=== PATIENT | female | born 1955 | race Caucasian/White ===

== ENCOUNTER 2017-09-22 10:45 | Emergency (ER) | payer SELFPAY ==
--- NOTE | 2017-09-22 11:40 | EDM.PDOC ---
ED HPI GENERAL MEDICAL PROBLEM - General Chief Complaint: Neuro Symptoms/Deficits Stated Complaint: DIZZY SPELLS Time Seen by Provider: 09/22/17 11:10 Source of Information: Reports: Patient, Family History Limitations: Reports: No Limitations - History of Present Illness INITIAL COMMENTS - FREE TEXT/NARRATIVE: 62-year-old female who has intermittent sudden onset lightheadedness which brings on anxiety. This is been going on for months. Today she had a spell where she sat down but it wasn't resolving so she thought she come in to be seen. She has no other symptoms such as headache, vertigo, visual disturbance, shortness of breath, palpitations, nausea or vomiting. She is hypertensive, is on HCTZ/triamterene. Occasionally when she gets lightheaded she then becomes anxious and gets some numbness in her hands and feet. The episode she had this morning is mostly resolved but she still feels "off". Onset: Unknown/Unsure Severity: Moderate Worsens with: Reports: Other (Anxiety, usually occurs with activity) Associated Symptoms: Denies: Confusion, Chest Pain, Cough, Diaphoresis, Fever/ Chills, Headaches, Nausea/Vomiting, Shortness of Breath - Related Data Allergies Allergy/AdvReac Type Severity Reaction Status Date / Time No Known Allergies Allergy Verified 12/29/13 11:02 Home Meds: Home Meds HCTZ/Triamterene [Dyazide 25-37.5 MG] 25 - 37.5 DAILY 09/22/17 [History] Past Medical History HEENT History: Reports: Impaired Vision Cardiovascular History: Reports: Hypertension Neurological History: Reports: Other (See Below) Other Neuro History: light headed at times Social & Family History - Tobacco Use Smoking Status *Q: Never Smoker Second Hand Smoke Exposure: No - Caffeine Use Caffeine Use: Reports: Coffee - Recreational Drug Use Recreational Drug Use: No ED ROS GENERAL - Review of Systems Review Of Systems: See Below Constitutional: Denies: Fever, Chills, Malaise, Weakness HEENT: Reports: No Symptoms Respiratory: Denies: Shortness of Breath, Cough Cardiovascular: Denies: Chest Pain, Palpitations GI/Abdominal: Reports: Abdominal Pain (Some vague abdominal pain which has been fairly persistent, across the upper abdomen) Skin: Reports: No Symptoms Neurological: Reports: Dizziness. Denies: Headache, Trouble Speaking, Difficulty Walking, Weakness Psychiatric: Reports: Anxiety ED EXAM, GENERAL - Physical Exam Exam: See Below Exam Limited By: No Limitations General Appearance: Alert, No Apparent Distress Eye Exam: Bilateral Eye: Normal Inspection Respiratory/Chest: No Respiratory Distress, Lungs Clear Cardiovascular: Regular Rate, Rhythm, Systolic Murmur (Faint systolic murmur is present) GI/Abdominal: Soft, Tender (Some discomfort across the upper abdomen but no focal guarding or rebound) Extremities: Normal Inspection. No: Pedal Edema Neurological: Alert, Oriented, No Motor/Sensory Deficits Psychiatric: Anxious Skin Exam: Warm, Dry Course - Vital Signs Last Recorded V/S: Last Vital Signs Temp 97.7 F 09/22/17 10:56 Pulse 83 09/22/17 12:20 Resp 16 09/22/17 12:20 BP 190/90 H 09/22/17 12:20 Pulse Ox 98 09/22/17 12:20 - Orders/Labs/Meds Labs: Laboratory Tests 09/22/17 09/22/17 09/22/17 Range/Units 11:40 11:40 11:40 WBC 7.7 (4.5-11.0) K/uL RBC 5.01 (3.30-5.50) M/uL Hgb 14.4 (12.0-15.0) g/dL Hct 43.2 (36.0-48.0) % MCV 86 (80-98) fL MCH 29 (27-31) pg MCHC 33 (32-36) % Plt Count 293 (150-400) K/uL Neut % (Auto) 69 H (36-66) % Lymph % (Auto) 20 L (24-44) % [place] % (Auto) 8 H (2-6) % Eos % (Auto) 3 (2-4) % Baso % (Auto) 1 (0-1) % Sodium 137 L (140-148) mmol/L Potassium 3.1 L (3.6-5.2) mmol/L Chloride 100 (100-108) mmol/L Carbon Dioxide 28 (21-32) mmol/L Anion Gap 12.1 (5.0-14.0) mmol/L BUN 9 (7-18) mg/dL Creatinine 0.8 (0.6-1.0) mg/dL Est Cr Clr Drug Dosing 51.03 mL/min Estimated GFR (MDRD) > 60 (>60) Glucose 147 H (74-106) mg/dL Calcium 8.9 (8.5-10.1) mg/dL Total Bilirubin 0.7 (0.2-1.0) mg/dL AST 18 (15-37) U/L ALT 24 (12-78) U/L Alkaline Phosphatase 92 (46-116) U/L Total Protein 7.2 (6.4-8.2) g/dL Albumin 3.2 L (3.4-5.0) g/dL Globulin 4.0 H (2.3-3.5) g/dL Albumin/Globulin Ratio 0.8 L (1.2-2.2) TSH, Ultra Sensitive 1.476 (0.358-3.740) uIU/mL Urine Color Urine Appearance Urine pH (4.5-8.0) Ur Specific [place] (1.008-1.030) Urine Protein (NEGATIVE) mg/dL Urine Glucose (UA) (NEGATIVE) mg/dL Urine Ketones (NEGATIVE) mg/dL Urine Occult Blood (NEGATIVE) Urine Nitrite (NEGATIVE) Urine Bilirubin (NEGATIVE) Urine Urobilinogen (NORMAL) mg/dL Ur Leukocyte Esterase (NEGATIVE) Urine RBC (0-5) Urine WBC (0-5) Ur Epithelial Cells Amorphous Sediment Urine Bacteria Urine Mucus 09/22/17 Range/Units 11:55 WBC (4.5-11.0) K/uL RBC (3.30-5.50) M/uL Hgb (12.0-15.0) g/dL Hct (36.0-48.0) % MCV (80-98) fL MCH (27-31) pg MCHC (32-36) % Plt Count (150-400) K/uL Neut % (Auto) (36-66) % Lymph % (Auto) (24-44) % [place] % (Auto) (2-6) % Eos % (Auto) (2-4) % Baso % (Auto) (0-1) % Sodium (140-148) mmol/L Potassium (3.6-5.2) mmol/L Chloride (100-108) mmol/L Carbon Dioxide (21-32) mmol/L Anion Gap (5.0-14.0) mmol/L BUN (7-18) mg/dL Creatinine (0.6-1.0) mg/dL Est Cr Clr Drug Dosing mL/min Estimated GFR (MDRD) (>60) Glucose (74-106) mg/dL Calcium (8.5-10.1) mg/dL Total Bilirubin (0.2-1.0) mg/dL AST (15-37) U/L ALT (12-78) U/L Alkaline Phosphatase (46-116) U/L Total Protein (6.4-8.2) g/dL Albumin (3.4-5.0) g/dL Globulin (2.3-3.5) g/dL Albumin/Globulin Ratio (1.2-2.2) TSH, Ultra Sensitive (0.358-3.740) uIU/mL Urine Color Yellow Urine Appearance Clear Urine pH 9.0 H (4.5-8.0) Ur Specific [place] 1.015 (1.008-1.030) Urine Protein Negative (NEGATIVE) mg/dL Urine Glucose (UA) Normal (NEGATIVE) mg/dL Urine Ketones Negative (NEGATIVE) mg/dL Urine Occult Blood Negative (NEGATIVE) Urine Nitrite Negative (NEGATIVE) Urine Bilirubin Negative (NEGATIVE) Urine Urobilinogen Normal (NORMAL) mg/dL Ur Leukocyte Esterase Negative (NEGATIVE) Urine RBC 0-5 (0-5) Urine WBC 0-5 (0-5) Ur Epithelial Cells Few Amorphous Sediment Not seen Urine Bacteria Few Urine Mucus Not seen - Re-Assessments/Exams Free Text/Narrative Re-Assessment/Exam: 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 She is hypertensive but O2 saturations are normal and she is afebrile. CBC, CMP and TSH were obtained. 09/22/17 12:30 CBC and TSH were normal. CMP revealed a potassium of 3.1, otherwise normal. She continued to be in sinus rhythm her entire ER stay. She was started on potassium chloride 20 mEq daily, and repeat blood pressure check still had a systolic of 190. She claims her blood pressure is usually normal. We also set her up for a 48 hour Holter monitor, and I would like her to recheck with her primary provider next week to recheck her blood pressure, her potassium, and consider additional blood pressure medication if necessary. Departure - Departure Time of Disposition: 13:00 Disposition: Home, Self-Care 01 Condition: Good Clinical Impression: Dizziness, Hypokalemia - Discharge Information Instructions: Hypokalemia Referrals: Susan Yañez PA [Primary Care Provider] - Forms: ED Department Discharge Care Plan Goals: Replace potassium with one oral dose daily for the next 30 days as prescribed. Continue on your other medication, and recheck next week to discuss Holter monitor results, get blood pressure and potassium recheck and discuss any further evaluation.
== END 2017-09-22 13:15 | disposition home or self-care (01) ==
LOC: JP.ED 10:45
DX: E87.6 Hypokalemia (principal); R42 Dizziness and giddiness; I10 Essential (primary) hypertension; Z79.899 Other long term (current) drug therapy
CPT/HCPCS: 36415; 80053; 81001; 84443; 85025; 99284

== ENCOUNTER 2021-05-13 19:40 | Emergency (ER) | payer MEDICARE ==
--- NOTE | 2021-05-13 21:12 | EDM.PDOC ---
ED HPI GENERAL MEDICAL PROBLEM - General Chief Complaint: Fever Stated Complaint: FEVER, COUGH, ABDOMINAL PAIN Time Seen by Provider: 05/13/21 20:20 Source of Information: Reports: Patient History Limitations: Reports: No Limitations - History of Present Illness INITIAL COMMENTS - FREE TEXT/NARRATIVE: 66-year-old female, usually healthy, was exposed to Covid 2 weeks ago and for the last week to week and a half has had a cough, intermittent fevers, intermittent lower abdominal pain and mild loose stools. Generalized body aches. She is unvaccinated and came in mainly to find out if she has Covid. She is very stable, no respiratory difficulties. Onset: Gradual Duration: Day(s): (7 to 10 days of symptoms) Associated Symptoms: Reports: Cough. 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: , Spontaneous Musculoskeletal History: Reports: Arthritis Neurological History: Reports: Other (See Below) Other Neuro History: light headed at times - Infectious Disease History Infectious Disease History: Reports: Chicken Pox Social & Family History - Tobacco Use Tobacco Use Status *Q: Never Tobacco User - Caffeine Use Caffeine Use: Reports: Coffee ED ROS GENERAL - Review of Systems Review Of Systems: See Below Constitutional: Reports: Fever, Chills, Malaise, Decreased Appetite HEENT: Denies: Vision Change Respiratory: Reports: Shortness of Breath, Cough, Sputum Cardiovascular: Denies: Chest Pain, Palpitations GI/Abdominal: Reports: Diarrhea, Nausea. Denies: Abdominal Pain, Vomiting Musculoskeletal: Reports: Muscle Pain Skin: Reports: No Symptoms. Denies: Rash Neurological: Denies: Headache ED EXAM, GENERAL - Physical Exam Exam: See Below Exam Limited By: No Limitations General Appearance: Alert, No Apparent Distress Eye Exam: Bilateral Eye: Normal Inspection Head: Atraumatic Neck: Supple, Non-Tender Respiratory/Chest: No Respiratory Distress, Rhonchi (Few scattered perihilar rhonchi are heard and some slight expiratory wheezing with cough) Cardiovascular: Regular Rate, Rhythm. No: Extra Beats GI/Abdominal: Normal Bowel Sounds, Soft, Non-Tender Neurological: Alert, Oriented Psychiatric: Normal Affect, Normal Mood Skin Exam: Warm, Dry Course - Vital Signs Last Recorded V/S: Last Vital Signs Temp 96.8 F L 05/13/21 19:57 Pulse 91 05/13/21 19:57 Resp 16 05/13/21 19:57 BP 142/93 H 05/13/21 19:57 Pulse Ox 92 L 05/13/21 19:57 - Orders/Labs/Meds Labs: Laboratory Tests 05/13/21 Range/Units 20:45 SARS-CoV-2 RNA ([facility]UNDO) Positive H (NEGATIVE) - Re-Assessments/Exams Free Text/Narrative Re-Assessment/Exam: 05/14/21 00:08 Covid test was done which returned positive. This was discussed with the patient, she was offered antibiotic therapy but declined. She will return if worsening or concerns. Departure - Departure Time of Disposition: 21:16 Disposition: Home, Self-Care 01 Clinical Impression: COVID-19 - Discharge Information Instructions: COVID-19, 10 Things You Can Do to Manage Your COVID-19 Symptoms at Home - [facility] (02/28/2021), COVID-19: How to Protect Yourself and Others - [facility], COVID-19: Quarantine vs. Isolation - [facility] (08/01/2020), COVID-19: What to Do If You Are Sick- [facility] (10/30/2020) Referrals: Susan Yañez PA [Primary Care Provider] - Forms: ED Department Discharge Care Plan Goals: Rest, fluids, return for more care especially if you have more difficulty breathing. Contact your primary provider in the next 3 days if you decide you want antibiotic therapy. Sepsis Event Note (ED) - Evaluation Sepsis Screening Result: No Definite Risk - Focused Exam Vital Signs: Vital Signs Temp Pulse Resp BP Pulse Ox 05/13/21 19:57 96.8 F L 91 16 142/93 H 92 L 05/13/21 19:56 96.8 F L 91 16 142/93 H 92 L
== END 2021-05-13 21:27 | disposition home or self-care (01) ==
LOC: JP.ED 19:40
DX: U07.1 COVID-19 (principal); I10 Essential (primary) hypertension
CPT/HCPCS: 99284; U0002

== ENCOUNTER 2024-05-17 17:40 | Emergency (ER) | payer MEDICARE ==
[2024-05-17] MEDS: Gabapentin 300 MG Cap PO ONE (20:13)
== END 2024-05-17 20:15 | disposition home or self-care (01) ==
LOC: JP.ED 17:40
DX: B02.9 Zoster without complications (principal); I10 Essential (primary) hypertension; Z86.16 Personal history of COVID-19; Z79.899 Other long term (current) drug therapy
CPT/HCPCS: 99283; A9270